=== PATIENT | male | born 1955 | race Caucasian/White ===

== ENCOUNTER → 2020-06-14 | Outpatient (CLI) | payer MEDICARE, OTHER | LOC: CT 06-01 09:30 | DX: I71.4 Abdominal aortic aneurysm, without rupture (principal); I73.9 Peripheral vascular disease, unspecified; I70.8 Atherosclerosis of other arteries; Z95.5 Presence of coronary angioplasty implant and graft | CPT/HCPCS: 36415; 75635; 82565; Q9967 ==